=== PATIENT | male | born 1990 | race Caucasian/White ===

== ENCOUNTER 2023-10-17 05:12 | Emergency (ER) | payer OTHER ==
[~2023-10-17] VITALS: Ht 170 cm; Wt 73.6 kg
[2023-10-17 05:15] VITALS: BP 115/79
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
== END 2023-10-17 05:58 ==
LOC: ER FS 05:14
DX: Z04.1 Encounter for examination and observation following transport accident (principal); Z02.89 Encounter for other administrative examinations; V89.2XXA Person injured in unspecified motor-vehicle accident, traffic, initial encounter; Y92.410 Unspecified street and highway as the place of occurrence of the external cause
CPT/HCPCS: 99281